=== PATIENT | female | born 1970 | race Caucasian/White ===

== ENCOUNTER 2021-12-25 09:46 | Emergency (ER) | payer SELFPAY ==
[2021-12-25 10:00] VITALS: BP 105/54; PULSE 74; RESP 18; TEMP 36.4; O2SAT 94; BMI 25.6
--- NOTE | 2021-12-25 10:26 | ED_ITS ---
HPI - General Adult General Time Seen by Provider: 10:26 Date Seen: 12/25/21 Chief complaint: Urogenital Problems, Female Stated complaint: Vaginal swelling/irritation Time Seen by Provider: 12/25/21 10:24 Source: patient and RN notes reviewed Mode of arrival: ambulatory Limitations: no limitations History of Present Illness HPI narrative: Patient is a 51-year-old female seen with the aid of the hourly sign language interpreter coming in with vaginal pain and irritation. She states she feels very swollen. She has had symptoms for about 2 months. She initially went to [facility] and they gave her a pill and a cream. She feels that helped but then symptoms came back. She was given another pill in a cream. She is having a lot of swelling. It is not noting significant vaginal discharge maybe scant but she is not sure that it is not the cream. There has been no fevers, no abdominal pain. She is postmenopausal, believes had her last menstrual period about 5 years ago. Has not been sexually active at all during this time frame. Related Data Home Medications Medication Instructions Recorded Confirmed No Known Home Medications 12/25/21 12/25/21 Allergies Allergy/AdvReac Type Severity Reaction Status Date / Time No Known Drug Allergies Allergy Verified 12/25/21 10:06 Review of Systems Status of ROS: Reports: 6 or more systems reviewed and unremarkable except as noted in History and below Exam Const: Vital Signs, click to edit/add: Vital Signs - 24 hr 12/25/21 10:00 Temperature 97.6 F Pulse Rate [Left P ulse Oximeter] 74 Respiratory Rate 18 Blood Pressure [Le ft Upper Arm] 105/54 L Pulse Oximetry 94 Oxygen Delivery Me thod Room Air Documenting provider has reviewed patient's vital signs: yes Common normals: no apparent distress, oriented x3, no limitations, healthy appearing and alert General appearance: cooperative and comfortable (At rest but extremely uncomfortable with just visualizing the perineum) HENMT: Common normals: normocephalic, head/scalp atraumatic and hearing grossly normal bilaterally Head and scalp: normocephalic and atraumatic Eye: Common normals: PERRL, EOMs intact bilaterally, conjunctivae normal and no scleral icterus Conjunctiva: conjunctiva(e) normal Pupil: PERRL Resp: Common normals: normal respiratory effort, no retractions, no use of accessory muscles and clear to auscultation bilaterally Auscultation: clear to auscultation bilaterally Cardio: Common normals: regular rate, regular rhythm, S1 normal heart sound, S2 normal heart sound, no gallops, no clicks and no murmurs Rate: regular rate Rhythm: regular rhythm Heart sounds: S1 normal and S2 normal GI: Common normals: Normal to inspection, nondistended, normoactive bowel sounds present, soft to palpation, non-tender, no hepatosplenomegaly and no masses Palpation: soft and no hepatosplenomegaly : External Female Exam: abnormal introitus and externally tender Other: Scant cream seems to be over the perineum. Seems to have some excoriation/erosion up at the apex of the perineum. Cannot tell if there is a little overlying skin change of route this nature. She is exquisitely tender with just minor newt touching of the area. Does not seem to be significantly erythematous. Do not note any vesicular lesions. Neuro: Common normals: oriented x3 Sensorium/orientation: alert Course Course Hospital Course: We were able to contact [facility] and she was given fluconazole 150 mg and clotrimazole on December 16. I am paging OB Gyne on-call Dr. Hartman. Consultations Consultation #1: Dr. Hartman did see the patient, please see her note, she reports to me that she suspects vestibulitis. Vital Signs Vital signs: Initial Vital Signs Temperature 97.6 F 12/25/21 10:00 Temperature Source Temporal Artery Scan 12/25/21 10:00 Pulse Rate 74 12/25/21 10:00 Respiratory Rate 18 12/25/21 10:00 Blood Pressure 105/54 L 12/25/21 10:00 Blood Pressure Mean 71 12/25/21 10:00 Blood Pressure Position Sitting 12/25/21 10:00 Pulse Oximetry 94 12/25/21 10:00 Oxygen Delivery Method 12/25/21 10:00 Vital Signs Temperature 97.6 F 12/25/21 10:00 Pulse Rate 74 12/25/21 10:00 Respiratory Rate 18 12/25/21 10:00 Blood Pressure 105/54 L 12/25/21 10:00 Pulse Oximetry 94 12/25/21 10:00 Oxygen Delivery Method 12/25/21 10:00 Temperature 97.6 F 12/25/21 10:00 Pulse Rate 74 12/25/21 10:00 Respiratory Rate 18 12/25/21 10:00 Blood Pressure 105/54 L 12/25/21 10:00 Pulse Oximetry 94 12/25/21 10:00 Oxygen Delivery Method 12/25/21 10:00 Medical Decision Making Lab Data Lab results reviewed: Yes I reviewed the patient's lab results Labs: Lab Results 12/25/21 Range/Units 12:45 Vaginal Trichomonas No Trichomonas Seen (None Seen) Vaginal Yeast No Yeast Seen (None Seen) Vaginal Clue Cells No Clue Cells Seen (None Seen) Critical Care Time Critical Care Time Critical Care Time: No Discharge Plan Discharge Clinical Impression: Vulvar vestibulitis Patient Disposition: Home, Self-Care Additional Instructions: Dr. Hartman has sent medications for you to use, please use as prescribed. She has requested that you follow-up with her next week, please work with the clinic to get that appointment scheduled. Activity Level: Activity as Tolerated Prescriptions: No Action No Known Home Medications Stand Alone Forms: [employer] Medical Info Instructions
[2021-12-25 13:00] LABS: Clue Cells No Clue Cells Seen (None Seen); Trichomonas No Trichomonas Seen (None Seen); Yeast No Yeast Seen (None Seen)
--- NOTE | 2021-12-25 14:22 | PM.GYNCN1 ---
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 Cintron Primary Care Provider: Not a Local Provider Consult Narrative Narrative: Macrina Cabrera is a 51 year old female who presents to the ER with chief complaint of extreme vulvar pain and itching. About a month ago, she had an episode of vulvar itching and discomfort. She was treated by a primary care doctor with both an oral pill and a vaginal cream. She is uncertain of the name to these medicines, but Dr. Cintron reports that she was given fluconazole and an anti-yeast vaginal cream. Symptoms improved, only to recur in the last few days. She has developed severe itching and pain. Pain is isolated to the vulva and is not deep inside the pelvis. Pain can be severe enough that she is not able to sit, and she is standing during much of her interview. She has tried using the pill and cream again, but symptoms have not improved. She describes pain like needles. She is cleansing the vulvar area with vulvar wipes. She denies any other health problems and takes no medications. Obstetric and gynecologic history: She is , with 3 vaginal births. She had menopause about 5 years ago. She had an episode of bleeding 5 years ago, followed by a hysteroscopy, D&C. She has not had bleeding since. cc:: CC: [facility] Medical History (Updated 12/25/21 @ 14:28 by Maddie Hartman MD) Vaginal delivery Surgical History (Updated 12/25/21 @ 14:29 by Maddie Hartman MD) H/O tubal ligation History of hysteroscopy Social History (Updated 12/25/21 @ 14:27 by Maddie Hartman MD) Narrative: She lives in [place]. 3 kids, the youngest 22 yrs old. 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 Vietnamese-speaking. Psych: Alert and oriented x 3, full affect HEENT: Normocephalic, atraumatic Pelvic exam: Mons normal, clitoris normal, urethral meatus normal. Labia majora normal in appearance bilaterally and nontender. Labia minora are more difficult to assess due to patient intolerance of exam, but are normal in appearance. Exam of vulva with Q tip reveals diffuse tenderness to palpation in the vestibule and adjacent to the clitoris. There is slight reddening with white scale over the posterior introitus. Perineum and anus normal appearance. Vagina pink-white and atrophic in appearance. Cervix pink and without lesion. Bimanual exam reveals no tenderness of bladder. Uterus is soft, nontender, mobile, anteverted, of normal size and texture. No palpable adnexal masses or tenderness. Assessment and Plan Assessment and plan (1) Vulvar irritation: Status: Acute Assessment and Plan: By her description, I suspect this began with yeast vaginitis. However, she now has pain that is inconsistent with this diagnosis, and symptoms have not improved with treatment for yeast vaginitis. Wet prep was sent and is pending. I am uncertain if she has an underlying vulvar dystrophy, and exam at this time is limited by patient intolerance. At this time, I would like to begin by treatment of irritation with clobetasol ointment. Prescription sent to the pharmacy for clobetasol 0.05% ointment to be used nightly. I would like her to follow up for repeat exam next week in clinic. I favor vulvar biopsy at that time, provided patient can tolerate the exam. I recommended avoidance of any scented products, including the wipes she has been using. I recommended Sitz baths for relief of discomfort and application of zinc oxide ointment after bathing. She was also given samples of 2% lidocaine gel to use at times of discomfort throughout the day. (2) Vulvar vestibulitis: Status: Acute Assessment and Plan: Suspecting given the nature and location of the most severe pain. I opted to give her prescription for low dose of amitriptyline 10 mg nightly. We did discuss sedation that can be caused by this. She is to follow up next week in clinic to review her symptoms.
== END 2021-12-25 14:00 | disposition home or self-care (01) ==
PROVIDERS: Emergency Provider Family Medicine
DX: N94.810 Vulvar vestibulitis (principal); N90.89 Other specified noninflammatory disorders of vulva and perineum
CPT/HCPCS: 87210; 99283

== ENCOUNTER 2022-04-01 05:18 | Emergency (ER) | payer SELFPAY ==
[2022-04-01 05:25] VITALS: BP 109/57; PULSE 70; RESP 16; TEMP 36.1; O2SAT 97
--- NOTE | 2022-04-01 05:54 | ED_ITS ---
HPI - General Adult General Date Seen: 04/01/22 Chief complaint: Ear/Nose/Throat Problem Stated complaint: Foreign object right ear Time Seen by Provider: 04/01/22 05:34 Source: patient Mode of arrival: ambulatory Limitations: language barrier History of Present Illness HPI narrative: Patient is a 52-year-old female who comes in along with her daughter who is interpreting with concern of a bug in her ear. At home they put some water and some oil in the ear but did not see a bug come out. Previously she felt some movement but she no longer does. Her hearing is normal. She denies pain present. There is some irritation. Related Data Previous Rx's Medication Instructions Recorded amitriptyline 10 mg tablet 10 mg PO DAILY #30 tabs 12/25/21 clobetasol 0.05 % topical ointment 1 applic topical HS 4 weeks #15 12/25/21 grams Allergies Allergy/AdvReac Type Severity Reaction Status Date / Time No Known Drug Allergies Allergy Verified 12/25/21 10:06 Review of Systems Narrative: Review of systems is outlined above otherwise noted to be negative. [facility] Medical History (Updated 04/01/22 @ 05:55 by Poncho Doshi MD) Vaginal delivery Surgical History (Updated 12/25/21 @ 14:29 by Maddie Hartman MD) H/O tubal ligation History of hysteroscopy Social History (Updated 12/25/21 @ 14:27 by Maddie Hartman MD) Narrative: She lives in [place]. 3 kids, the youngest 22 yrs old. Smoking Status: Never smoker Do you use any of these nicotine containing products: None How often do you have a drink containing alcohol: never AUDIT-C Alcohol total score: 0 Non-prescribed substance use: denies use Exam Narrative: Exam Narrative: Vitals noted. Examination shows both ear canals to be free of wax. I do not see any type of insect or other foreign body. We did a brief ear lavage and then looked again I still see nothing present in the ear canal. No tenderness with manipulation of the external ear. No adenopathy. Const: Vital Signs, click to edit/add: Vital Signs - 24 hr 04/01/22 05:25 Temperature 97.0 F L Pulse Rate [Left P ulse Oximeter] 70 Respiratory Rate 16 Blood Pressure [Le ft Upper Arm] 109/57 L Pulse Oximetry 97 Oxygen Delivery Me thod Room Air Course Course Hospital Course: Patient seen and examined. Ear exam is normal. With her story I did decide to do I ear lavage and still did not see any retained foreign body. She tolerated this well. Vital Signs Vital signs: Initial Vital Signs Temperature 97.0 F L 04/01/22 05:25 Temperature Source Temporal Artery Scan 04/01/22 05:25 Pulse Rate 70 04/01/22 05:25 Respiratory Rate 16 04/01/22 05:25 Blood Pressure 109/57 L 04/01/22 05:25 Blood Pressure Mean 74 04/01/22 05:25 Blood Pressure Position Sitting 04/01/22 05:25 Pulse Oximetry 97 04/01/22 05:25 Oxygen Delivery Method 04/01/22 05:25 Vital Signs Temperature 97.0 F L 04/01/22 05:25 Pulse Rate 70 04/01/22 05:25 Respiratory Rate 16 04/01/22 05:25 Blood Pressure 109/57 L 04/01/22 05:25 Pulse Oximetry 97 04/01/22 05:25 Oxygen Delivery Method 04/01/22 05:25 Temperature 97.0 F L 04/01/22 05:25 Pulse Rate 70 04/01/22 05:25 Respiratory Rate 16 04/01/22 05:25 Blood Pressure 109/57 L 04/01/22 05:25 Pulse Oximetry 97 04/01/22 05:25 Oxygen Delivery Method 04/01/22 05:25 Discharge Plan Discharge Clinical Impression: Foreign body in ear Patient Disposition: Home, Self-Care Condition: Stable Additional Instructions: I do not see anything in your ear canal. If you feel movement or plugging please follow-up in the clinic for a recheck. Prescriptions: No Action amitriptyline 10 mg tablet 10 mg PO DAILY Qty: 30 0RF clobetasol 0.05 % ointment 1 applic topical HS 28 Days Qty: 15 0RF Follow Up/Referrals: Provider,Not a Local [Primary Care Provider] - Stand Alone Forms: [facility] Info Instructions
--- NOTE | 2022-04-01 05:56 | ED.NURSE ---
elephant ear flush used. nothing removed after flush.
--- OUTSIDE RECORDS SUMMARY | 2022-04-01 06:04 | XMS_ITS ---
:1970 Author Care Team Providers Name Role Phone Nessa Hinojosa Primary Care Provider Unavailable Allergies Code Code System Name Reaction Severity Status Onset NKDA ? Medications Name Status Start Date Stop Date ? ? amitriptyline 10 mg tablet Completed ? 03/09 TAKE ONE TABLET BY MOUTH DAILY B12 Active ? Not available B12 vitamin Biotene Dry Mouth Oral Rinse Active ? Not available clobetasol 0.05 % topical ointment Active ? Not available APPLY TOPICALLY AT BEDTIME FOR 4 WEEKS DIRECTED clotrimazole 1 % vaginal cream Active ? N ot available INSERT 1 APPLICATORFUL EVERY DAY BY VAGINAL ROUTE FOR 3 DAYS. Clotrimazole-3 2 % vaginal cream Completed ? 03/09/2022 INSERT 1 APPLICATORFUL EVERY DAY BY VAGINAL ROUTE FOR 3 DAYS. fluconazole 150 mg tablet Active ? Not av ailable TAKE ONE TABLET BY MOUTH FOR 1 DAY glipizide ER 10 mg tablet, extended release 24 hr Active ? Not available Take 1 tablet every day by oral route. glipizide ER 2.5 mg tablet, extended release 24 hr Completed ? 01/07/2022 Take 2 tablets every day by oral route. glipizide ER 5 mg tablet, extended release 24 hr Active ? Not available TAKE 1 TABLET(5MG) BY MOUTH EVERY DAY metformin ER 1,000 mg tablet,extended release 24hr Active ? Not available Take 1 tablet every day by oral route. metformin ER 500 mg tablet,extended release 24 hr Completed ? 03/09/2022 TAKE ONE TABLET BY MOUTH EVERY DAY Notes: On taking MVI Problems Notes: See past surgeries; no current issues Procedures Date Name Performed by ? 12/16/2021 MAMMO, Screening, Bilateral Information not available Notes: uterine fibroid surgery 4 years ago Some type of head surgery for hydrocepha ly-?fluid removal? Says she still has internal tube draining. Results Lab Results Date Name Specimen Result Interpretation Description Value Range Status Address ? 12/25/2021 Lipid Panel, ? Creatinine 0.5 ? Fi nal Serum ? ? High Total Cholesterol 300 ? Final ? ? High Triglycerides 366 ? Final ? ? Low Hdl 29 ? Final ? ? High Ldl 198 ? Final 12/25/2021 BMP, Serum ? Creatinine 0.5 ? Priscilla l or Plasma ? ? High Total Cholesterol 300 ? Final ? ? High Triglycerides 366 ? Final ? ? Low Hdl 29 ? Final ? ? High Ldl 198 ? Final 12/25/2021 HbA1C ? No observation ? ? ? Ying (Hemoglobin recorded. Of fice: 1415 a1C), Blood [facility] Akiko JuarezElizabeth Past Encounters Encounter Date Diagnosis Provider 12/30/2021 Type II Diabetes Mellitus Nessa hull, ANP-BC: 1415 Uncontrolled; Diabetes Mellitus [facility] [place] [address], Ph. 12/16/2021 Polyuria; Screening for Malignant ADRIAN Funes-BC: 1415 Neoplasm of Colon; Screening [facility] [place], [place] Mammography; Candidiasis of Vagina [id number], Ph. 10/16/2021 Candidiasis of Vagina Truman Funes SOCIAL MEDIA EDITOR-BC: [address] [place] [address], Ph. Social History Tobacco Smoking Status Never Smoker Vaccine List Notes: COVID x2 Plan of Care Reminders Provider Appointments None recorded. ? ? Lab None recorded. ? ? Referral None recorded. ? ? Procedures None recorded. ? ? Surgeries None recorded. ? ? Imaging None recorded. ? ? Vitals 12/16/2021 03:30PM [facility] VISIT Height Weight BMI Blood Pressure 5 ft 2 in 49 lbs 9 kg/m2 102/66 mm[Hg] 10/16/2021 11:30AM Don't use: Established 30 Blood Pressure 112/70 mm[Hg]
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
== END 2022-04-01 06:07 | disposition home or self-care (01) ==
LOC: ED 06:01
PROVIDERS: Emergency Provider Family Medicine
DX: Z71.1 Person with feared health complaint in whom no diagnosis is made (principal)
CPT/HCPCS: 99281; 99282